=== PATIENT | female | born 1995 | race Caucasian/White ===

== ENCOUNTER → 2016-03-14 | Outpatient (CLI) | payer OTHER ==
--- NOTE | 2016-03-15 04:13 | REP ---
Clinical: Anatomical evaluation. Comparison: none. Findings: Examination demonstrates a single live intrauterine in breech presentation. motion is identified by technologist. Placenta is noted posteriorly and grade zero without evidence for placenta previa or abruption. Amniotic fluid volume is normal. Cervix measures 4.8 cm in length and appears closed. No evidence for nuchal cord. Gestational age by LMP 20 weeks 4 days with RUTH 07/28/2016. Gestational age by current measurements 20 weeks 0 days with RUTH 08/01/2016. FHR equals 150 beats per minute. BPD 4.5 cm 19 weeks 5 days HC 17.7 cm 20 weeks 1 day AC 15.3 cm 20 weeks 4 days FL 3.3 cm 20 weeks 3 days HL 3.2 cm and weeks 6 days HC/AC ratio 1.16 Estimated weight 353 grams ( 40th percentile). Anatomical assessment demonstrates normal structures including cranium, choroid plexus, cavum, cerebellum/posterior fossa, facial features, lungs, four-chamber heart/ventricular outflow tracts, diaphragm, stomach, cord insertion/three-vessel cord, kidneys/bladder, spine, and extremities. Impression: Single live intrauterine demonstrating appropriate interval growth. Breech presentation. Anatomical assessment is complete and normal. Signed by Wilfredo Chatterjee MD 03/15/2016 04:04 A
== END ==
LOC: M SMT 09:46
PROVIDERS: ATTEND Advanced Practice Midwife
DX: Z36 Encounter for antenatal screening of mother (principal); Z3A.20 20 weeks gestation of pregnancy

== ENCOUNTER → 2016-04-25 | Outpatient (CLI) | payer OTHER ==
[2016-04-25 16:40] LABS: MEAN CORPUSCULAR HEMOGLOBIN 29.9 pg (27.0-33.0); MEAN CORPUSCULAR HGB CONC 33.3 g/dl (32.0-36.5); MEAN CORPUSCULAR VOLUME 89.7 fl (80.0-96.0); WHITE BLOOD COUNT 11.2 K/mm3 (4.0-10.0)
== END ==
LOC: M SMT 09:38
PROVIDERS: ATTEND Obstetrics & Gynecology
DX: Z36 Encounter for antenatal screening of mother (principal)

== ENCOUNTER → 2016-04-30 | Outpatient (CLI) | payer OTHER | LOC: M LAB 07:54 | PROVIDERS: ATTEND Obstetrics & Gynecology | DX: Z36 Encounter for antenatal screening of mother (principal) ==

== ENCOUNTER → 2016-07-05 | Outpatient (REF) | payer OTHER | LOC: M LAB REF 12:44 | PROVIDERS: ATTEND Advanced Practice Midwife | DX: Z34.83 Encounter for supervision of other normal pregnancy, third trimester (principal) ==

== ENCOUNTER → 2016-07-19 | Outpatient (CLI) | payer OTHER ==
--- NOTE | 2016-07-19 13:45 | REP ---
Obstetric sonography: History: Gestational diabetes. Findings: Scanning through the gravid uterus demonstrates a viable single intrauterine gestation in a cephalic lie. motion is observed and heart rate is recorded at 147 beats per minute. A posterior fundal grade 0 placenta is seen without evidence of previa or abruption. Amniotic fluid is subjectively normal. Closed cervical length is measured at 4.1 cm transabdominally. No extrauterine abnormality is observed. There has been appropriate interval growth. The following anatomic structures are again identified today and felt to be unremarkable: cranium, choroid plexus, cavum, left ventricular outflow tract view, left-sided stomach, three-vessel cord, kidneys, bladder, spine. Biometry chart: BPD 9.4 cm = 38 weeks 2 days Head circumference 34.4 cm = 39 weeks 5 days Abdominal circumference 36.5 cm = 40 weeks 3 days Femur length 7.5 cm = 38 weeks 4 days Humeral length 6.6 cm = 38 weeks 3 days HC/AC ratio normal 0.94, cephalic index normal 0.76, estimated weight 3849 grams, 8 pounds 7 ounces, 76th percentile for 38 weeks 5 days. heart rate 147 beats per minute. MALINDA normal 12.9 cm. S/D ratio umbilical cord artery by Doppler normal 2.58. Impression: Viable single intrauterine gestation at 39 weeks 0 days by today's composite sonographic criteria. Expected gestational age estimate based on prior sonography is 38 weeks 1 day. RUTH by prior sonography August 01, 2016. Signed by Terry Dotson MD 07/19/2016 04:26 P
== END ==
LOC: M RAD 12:21
PROVIDERS: ATTEND Obstetrics & Gynecology
DX: O24.410 Gestational diabetes mellitus in pregnancy, diet controlled (principal); Z3A.39 39 weeks gestation of pregnancy

== ENCOUNTER 2016-07-28 20:55 | Inpatient (IN) | payer OTHER ==
[~2016-07-28] VITALS: Ht 175.3 cm; Wt 125.0 kg
[2016-07-28 21:12] VITALS: BP 120/79
[2016-07-28 22:34] LABS: MEAN CORPUSCULAR HEMOGLOBIN 30.7 pg (27.0-33.0); MEAN CORPUSCULAR HGB CONC 34.8 g/dl (32.0-36.5); RED CELL DISTRIBUTION WIDTH 13.5 % (11.5-14.5); WHITE BLOOD COUNT 12.1 K/mm3 (4.0-10.0)
[2016-07-28] MEDS: miSOPROStol 50 MCG 1/2 TAB (S0191) PO SCH (22:37)
[2016-07-28 22:38] VITALS: BP 125/61
[2016-07-28 23:11] VITALS: BP 117/71
[2016-07-28 23:41] VITALS: BP 122/60
[2016-07-28] MEDS ORDERED: PRENTAB13 PO (23:46)
[2016-07-29] VITALS (12 sets, daily range): BP systolic 105–129; BP diastolic 54–72
--- NOTE | 2016-07-29 01:00 | HPE ---
DATE OF ADMISSION: 07/28/2016 HISTORY: 20-year-old (G) 2, para (P) 0-0-1-0 female at 40-0/7 weeks gestation by last menstrual period (LMP) consistent with 10-week ultrasound, estimated date of confinement (EDC) of 07/28/2016, presents for labor induction. The patient has a history of diet-controlled gestational diabetes. The patient also had a history at her last office visit of a 9-pound weight gain in 1 week and blood pressure 134/90 and increased lower extremity edema. COURSE: The patient initiated care at 10 weeks gestation on 01/02/2016. Her first trimester blood pressure was 114/64, weight 243 pounds. course was significant for an abnormal glucose tolerance test. She had excellent glucose control as documented by glucose testing. She did not require medications for gestational diabetes. Growth ultrasound at 38 weeks gestation revealed a weight in the 76th percentile, 3849 grams. MEDICAL HISTORY: Noncontributory. SURGICAL HISTORY: Noncontributory. ALLERGIES: None. SOCIAL HISTORY: The father of the baby is involved. The patient denies cigarettes, alcohol or drug use. FAMILY HISTORY: Noncontributory. PHYSICAL EXAMINATION: VITAL SIGNS: Blood pressure 134/70. She is in no apparent distress. HEAD/NECK: Examination normal. LUNGS: Clear. HEART: Regular rate and rhythm. ABDOMEN: Nontender. Gravid. heart tones category 1. STERILE VAGINAL EXAMINATION: Cervix is closed, 50%, -3 station, vertex. EXTREMITIES: Nontender. LABORATORIES: Blood type A positive. Rubella immune. RPR nonreactive. Hepatitis B and C negative. Diabetes screen 139. Group B Streptococcus (GBS) negative 07/05/2016. ASSESSMENT: 20-year-old (G) 2, para (P) 0-0-1-0 female at 40-0/7 weeks gestation with diet-controlled gestational diabetes presents for labor induction. The patient is admitted on 07/28/2016. Risks of induction were discussed.
[2016-07-29] MEDS: miSOPROStol 50 MCG 1/2 TAB (S0191) PO SCH ×4 (02:37→15:33)
[2016-07-29] MEDS ORDERED: BUTORPHANOL 2 MG/ML INJ (J0595) IV ONE (11:30)
[2016-07-29] MEDS ORDERED: PROMETHAZINE INJ 25 MG/ML VIAL (J2550) IV ONE (11:30)
[2016-07-29] MEDS ORDERED: OXYTOCIN DRIP 30 UNITS in APPROPRIATE DILUENT 1 EA IV SCH (17:00)
[2016-07-29 17:26] LABS: MEAN CORPUSCULAR HEMOGLOBIN 31.1 pg (27.0-33.0); MEAN CORPUSCULAR HGB CONC 35.5 g/dl (32.0-36.5); MEAN CORPUSCULAR VOLUME 87.6 fl (80.0-96.0); RED CELL DISTRIBUTION WIDTH 13.1 % (11.5-14.5); WHITE BLOOD COUNT 15.6 K/mm3 (4.0-10.0)
[2016-07-29] MEDS ORDERED: FENTANYL 2MCG/ML ROPIVACAINE 0.2% IN 0.9% NACL 200ML IVBAG As Ordered ONE (23:58)
[2016-07-30] VITALS (92 sets, daily range): BP systolic 87–177; BP diastolic 50–104
[2016-07-30] MEDS ORDERED: ONDANSETRON 4MG/2ML VIAL (J2405) IV PRN ×2 (01:30→19:45)
[2016-07-30] MEDS ORDERED: diphenhydrAMINE INJ 50MG/ML VIAL (J1200) IV PRN (01:30)
[2016-07-30] MEDS ORDERED: EPIDURAL/PCA KEYS XX PRN (01:30)
[2016-07-30] MEDS ORDERED: NALOXONE INJ 0.4 MG/1 ML VIAL (J2310) IV PRN (01:30)
[2016-07-30] MEDS ORDERED: REFRIGERATOR IV KEYS XX PRN (01:30)
[2016-07-30] MEDS ORDERED: LACTATED RINGER'S 1000 ML IV PRN (01:30)
[2016-07-30] MEDS ORDERED: EPIDURAL COMMENT XX SCH (01:30)
[2016-07-30] MEDS ORDERED: FENTANYL/ROPIVACAINE/NACL BAG 200 ML EPIDURAL SCH (01:30)
[2016-07-30] MEDS ORDERED: ePHEDrine SULFATE 25 MG/5 ML(5MG/ML) SYRINGE IV PRN (01:30)
[2016-07-30] MEDS: LR 1,000 ML IV SCH ×2 (10:30→15:03)
[2016-07-30 19:28] LABS: CORD GAS ABE V -4.1; CORD GAS HCO3 V 21.9 MEQ/L; CORD GAS O2 SAT V 38.3 %; CORD GAS PCO2 V 43.4 mmHg; CORD GAS PH V 7.321 UNITS; CORD GAS PO2 V 18.6 mmHg; CORD GAS SBC V 19.7 MEQ/L; CORD GAS TCO2 V 23.2 MEQ/L
[2016-07-30 19:29] LABS: CORD GAS ABE A -5.2; CORD GAS HCO3 A 21.4 MEQ/L; CORD GAS O2 SAT A 29.1 %; CORD GAS PCO2 A 45.6 mmHg; CORD GAS PH A 7.29 UNITS; CORD GAS PO2 A 15.2 mmHg; CORD GAS SBC A 18.6 MEQ/L; CORD GAS TCO2 A 22.8 MEQ/L
[2016-07-30] MEDS: OXYTOCIN DRIP 30 UNITS in APPROPRIATE DILUENT 1 EA IV SCH ×3 (19:38→22:15)
[2016-07-30] MEDS ORDERED: DIBUCAINE 1% OINTMENT 30GM TOP PRN (19:45)
[2016-07-30] MEDS ORDERED: MEASLES,MUMPS,RUBELLA VACCINE INJ (MMR-II) (90707) SC SCH (19:45)
[2016-07-30] MEDS ORDERED: DOCUSATE SODIUM 100 MG CAP PO PRN (19:45)
[2016-07-30] MEDS ORDERED: ANUSOL HC CREAM 30GM TOP PRN (19:45)
[2016-07-30] MEDS ORDERED: RHOGAM 300 MCG (1500 IU) INJ (J2790) IM SCH (19:45)
[2016-07-30] MEDS ORDERED: MOM 30ML SUSPENSION UDC PO PRN (19:45)
[2016-07-30] MEDS ORDERED: METHYLERGONOVINE MALEATE 0.2 MG TAB PO PRN (19:45)
[2016-07-30] MEDS ORDERED: IBUPROFEN 800 MG TAB PO PRN (19:45)
[2016-07-30] MEDS ORDERED: ACETAMINOPHEN 500 MG TAB PO PRN (19:45)
--- NOTE | 2016-07-30 20:13 | DN ---
DATE OF DELIVERY: 07/30/2016 TIME OF : 1908 GENDER: Male. SCORES: 8 and 9. WEIGHT: 3894 grams, or 8 pound s 9 ounces. ANESTHESIA: Epidural. LACERATIONS: A second-degree midline laceration and a periurethral laceration. COUNTS: Five laparotomy sponges accounted for prior to and after delivery. Three sharps removed from the delivery field. CORD GASES: 7.29, 7.32 with base excesses of -5.2 and -4.1, respectively. MODE OF DELIVERY: Low vacuum-assisted vaginal delivery. INDICATION FOR DELIVERY: Maternal exhaustion. DELIVERY NOTE: On 07/30/2016 at 1909, Mrs. Rey, a 20-year-old 2, now para 1, had a low vacuum-assisted vaginal delivery of a live-born male infant, scores 8 and 9. Weight was 8 pounds 9 ounces, or 3898 grams. Indication for operative delivery was maternal exhaustion. The patient had been pushing for approximately 3-1/2 hours and had made no further descent after approximately an hour and a half. She was examined. She was found to be in +2 station. Position was occiput posterior (OP). She was verbally consented for an operative delivery. The vacuum was placed, and with three sets of maternal pushing effort with three popoffs, two secondary to poor suction, had was delivered OP. Suction was then released. The left anterior shoulder was then delivered followed by right posterior shoulder and corpus. Infant was handed to mother with good cry. Cord was clamped times two and was cut by the father of the baby under my direction. Cord blood as well as cord gases was obtained. Placenta was drained and delivered grossly intact. A premix bag of 500 mL of normal saline with 30 units of Pitocin was then bolused along with uterine massage until the uterus was firm. On inspection, there was a periurethral laceration as well as a secondary midline laceration, which were both repaired with #3-0 Vicryl. On reinspection, cervix, vagina, and peritoneum were grossly intact and hemostatic. A Musa catheter was then placed and set to gravity secondary to periurethral laceration and concerns for edema. Edited: marlen 08/03/2016 1369 MTDD
[2016-07-30] MEDS: KETOROLAC 30 MG/ML VIAL (J1885) IV SCH (21:29)
[2016-07-30] MEDS ORDERED: OXYTOCIN INJ 10 UNITS/ML VIAL (J2590) IV ONE (22:00)
[2016-07-30] MEDS ORDERED: miSOPROStol 200 MCG TAB (S0191) PR ONE (22:00)
[2016-07-30] MEDS ORDERED: MORPHINE 10 MG/ML 1ML VIAL As Ordered ONE (22:06)
[2016-07-30] MEDS ORDERED: METHYLERGONOVINE MALEATE 0.2 MG/ML VIAL (J2210) As Ordered ONE (22:15)
[2016-07-30] MEDS ORDERED: OXYTOCIN DRIP 30 UNITS in APPROPRIATE DILUENT 1 EA IV SCH (22:28)
[2016-07-30] MEDS ORDERED: METHYLERGONOVINE MALEATE 0.2 MG/ML VIAL (J2210) IM ONE (22:30)
[2016-07-30] MEDS ORDERED: MORPHINE 10 MG/ML 1ML VIAL IV ONE (22:30)
[2016-07-30 22:53] LABS: MEAN CORPUSCULAR HGB CONC 34.9 g/dl (32.0-36.5); MEAN CORPUSCULAR VOLUME 88.7 fl (80.0-96.0); RED CELL DISTRIBUTION WIDTH 13.6 % (11.5-14.5)
[2016-07-30] MEDS: AMPICILLIN SOD/SULBACTAM SOD 3 GM in D5W MINI-BAG PLUS 100 ML IV SCH (23:16)
[2016-07-31] VITALS (7 sets, daily range): BP systolic 101–132; BP diastolic 55–86
[2016-07-31] MEDS: KETOROLAC 30 MG/ML VIAL (J1885) IV SCH (02:31)
[2016-07-31] MEDS: METHYLERGONOVINE MALEATE 0.2 MG TAB PO SCH ×6 (02:31→21:43)
[2016-07-31] MEDS ORDERED: OXYTOCIN 30 UNITS IN 0.9% NaCl 500ML IV BAG (J2590) As Ordered ONE (03:03)
[2016-07-31] MEDS: OXYTOCIN DRIP 30 UNITS in APPROPRIATE DILUENT 1 EA IV SCH (03:36)
[2016-07-31] MEDS: AMPICILLIN SOD/SULBACTAM SOD 3 GM in D5W MINI-BAG PLUS 100 ML IV SCH ×2 (04:50→10:06)
[2016-07-31] MEDS ORDERED: IBUPROFEN 800 MG TAB PO SCH (06:00)
[2016-07-31 07:09] LABS: MEAN CORPUSCULAR HEMOGLOBIN 31.5 pg (27.0-33.0); MEAN CORPUSCULAR HGB CONC 35.3 g/dl (32.0-36.5); MEAN CORPUSCULAR VOLUME 89.2 fl (80.0-96.0); RED CELL DISTRIBUTION WIDTH 13.3 % (11.5-14.5); WHITE BLOOD COUNT 17.6 K/mm3 (4.0-10.0)
[2016-07-31] MEDS: PRENATAL VITAMIN TAB PO SCH (10:05)
[2016-07-31] MEDS: IBUPROFEN 800 MG TAB PO SCH (21:43)
[2016-08-01 02:00] VITALS: BP 120/71
[2016-08-01] MEDS: IBUPROFEN 800 MG TAB PO SCH (05:38)
[2016-08-01 06:00] VITALS: BP 132/67
[2016-08-01] MEDS ORDERED: IBUP-1114 PO (08:28)
[2016-08-01] MEDS ORDERED: ACET50TA PO (08:31)
[2016-08-01] MEDS: PRENATAL VITAMIN TAB PO SCH (09:55)
[2016-08-01 10:38] VITALS: BP 110/62
[2016-08-01 14:10] VITALS: BP 135/60
== END 2016-08-01 15:37 | disposition home or self-care (01) | DRG 560 ==
LOC: M LDI 20:55 → M OBS 07-30 20:45
PROVIDERS: ADMIT Specialist; ATTEND Specialist
PROC: 3E0DXGC Introduction of Other Therapeutic Substance into Mouth and Pharynx, External Approach (ICD-10-PCS; 2016-07-28)
PROC: 10D07Z6 Extraction of Products of Conception, Vacuum, Via Natural or Artificial Opening (ICD-10-PCS; principal; 2016-07-30)
PROC: 0KQM0ZZ Repair Perineum Muscle, Open Approach (ICD-10-PCS; 2016-07-30)
PROC: 0UQMXZZ Repair Vulva, External Approach (ICD-10-PCS; 2016-07-30)
DX: O24.420 Gestational diabetes mellitus in childbirth, diet controlled (principal); O72.1 Other immediate postpartum hemorrhage; O48.0 Post-term pregnancy; Z37.0 Single live birth; Z3A.40 40 weeks gestation of pregnancy; O71.82 Other specified trauma to perineum and vulva; O70.1 Second degree perineal laceration during delivery; O75.81 Maternal exhaustion complicating labor and delivery

== ENCOUNTER → 2016-08-16 | Outpatient (CLI) | payer OTHER ==
[~2016-08-16] MED LIST: ACET50TA PO; IBUP-1114 PO; PRENTAB20 PO
[2016-08-16 13:48] LABS: BASO % 0.4 % (0.0-1.0); EOS % 0.7 % (0.0-3.0); LARGE UNSTAINED CELL # 0.1 K/mm3 (0.0-0.4); LARGE UNSTAINED CELL % 1.4 % (0.0-4.0); LYMPH # 1.8 K/mm3 (1.5-6.5); LYMPH % 21.6 % (24.0-44.0); MEAN CORPUSCULAR HEMOGLOBIN 29.6 pg (27.0-33.0); MEAN CORPUSCULAR HGB CONC 32.7 g/dl (32.0-36.5); MEAN CORPUSCULAR VOLUME 90.4 fl (80.0-96.0); MONO # 0.4 K/mm3 (0.0-0.8); MONO % 4.5 % (0.0-5.0); NEUTROPHILS # 5.9 K/mm3 (1.8-7.7); NEUTROPHILS % 71.4 % (36.0-66.0); PLATELET COUNT, AUTOMATED 300 k/mm3 (150-450); RED CELL DISTRIBUTION WIDTH 13.2 % (11.5-14.5); WHITE BLOOD COUNT 8.2 K/mm3 (4.0-10.0)
== END ==
LOC: M SMT 10:24
PROVIDERS: ATTEND Advanced Practice Midwife
DX: Z13.89 Encounter for screening for other disorder (principal)

== ENCOUNTER → 2016-09-11 | Outpatient (REF) | payer OTHER | LOC: M LAB REF 09:11 | PROVIDERS: ATTEND Physician Assistant Medical | DX: J02.9 Acute pharyngitis, unspecified (principal) ==

== ENCOUNTER → 2016-10-13 | Outpatient (REF) | payer OTHER | LOC: M LAB REF 10:00 | PROVIDERS: ATTEND Physician Assistant | DX: J02.9 Acute pharyngitis, unspecified (principal) ==

== ENCOUNTER → 2017-09-19 | Outpatient (REF) | payer OTHER ==
[2017-09-19 11:32] LABS: BASO % 0.5 % (0.0-1.0); EOS # 0.1 10^3/uL (0.0-0.50); EOS % 1.8 % (0.0-3.0); HEMATOCRIT 42.3 % (36.0-47.0); IMMATURE GRANULOCYTE % 0.2 % (0-3.0); LYMPH # 2.6 10^3/uL (1.5-6.5); LYMPH % 40.2 % (24.0-44.0); MEAN CORPUSCULAR HEMOGLOBIN 28.8 pg (27.0-33.0); MEAN CORPUSCULAR HGB CONC 33.1 g/dl (32.0-36.5); MONO # 0.5 10^3/uL (0.0-0.8); MONO % 7.6 % (0.0-5.0); NEUTROPHILS # 3.3 10^3/uL (1.8-7.7); NEUTROPHILS % 49.7 % (36.0-66.0); PLATELET COUNT, AUTOMATED 201 10^3/uL (150-450); RED BLOOD COUNT 4.86 10^6/uL (4.00-5.40); RED CELL DISTRIBUTION WIDTH 12.6 % (11.5-14.5); WHITE BLOOD COUNT 6.6 10^3/uL (4.0-10.0)
[2017-09-19 12:12] LABS: TOTAL 25(OH) VITAMIN D 26.4 NG/ML (30.0-100.0)
[2017-09-19 12:27] LABS: ALBUMIN 3.6 GM/DL (3.2-5.2); ALBUMIN/GLOBULIN RATIO 1.03 (1.00-1.93); ALKALINE PHOSPHATASE 78 U/L (45-117); ALT/SGPT 31 U/L (12-78); ANION GAP 10 MEQ/L (8-16); AST/SGOT 14 U/L (7-37); BILIRUBIN,TOTAL 0.2 MG/DL (0.2-1.0); BLOOD UREA NITROGEN 13 MG/DL (7-18); CALCIUM LEVEL 9.3 MG/DL (8.5-10.1); CARBON DIOXIDE LEVEL 27 MEQ/L (21-32); CHLORIDE LEVEL 105 MEQ/L (98-107); CHOLESTEROL LEVEL 196 MG/DL (<200); CHOLESTEROL RISK RATIO 4.454 (<5); CREATININE FOR GFR 0.76 MG/DL (0.55-1.30); FREE T4 0.98 NG/DL (0.76-1.46); GLOMERULAR FILTRATION RATE > 60.0 (>60); GLUCOSE, FASTING 104 MG/DL (70-100); HDL CHOLESTEROL 44 MG/DL (>40); LDL CHOLESTEROL 128.4 MG/DL (<100); NON-HDL-C 152 MG/DL; POTASSIUM SERUM 4.5 MEQ/L (3.5-5.1); SODIUM LEVEL 142 MEQ/L (136-145); TOTAL PROTEIN 7.1 GM/DL (6.4-8.2); TRIGLYCERIDES LEVEL 118 MG/DL (<150)
== END ==
LOC: M SFHCSACK 08:10
DX: Z00.00 Encounter for general adult medical examination without abnormal findings (principal); Z83.49 Family history of other endocrine, nutritional and metabolic diseases; Z13.29 Encounter for screening for other suspected endocrine disorder; Z13.21 Encounter for screening for nutritional disorder

== ENCOUNTER → 2017-12-01 | Outpatient (REF) | payer OTHER | LOC: M LAB REF 13:56 | DX: Z01.411 Encounter for gynecological examination (general) (routine) with abnormal findings (principal) | CPT/HCPCS: 88142 ==

== ENCOUNTER → 2017-12-17 | Outpatient (REF) | payer OTHER | LOC: M LAB REF 16:45 | DX: J02.9 Acute pharyngitis, unspecified (principal) ==

== ENCOUNTER 2018-02-16 15:57 | Emergency (ER) | payer OTHER ==
[~2018-02-16] VITALS: Ht 175.3 cm; Wt 122.7 kg
[~2018-02-16 15:57] MED LIST changes: -ACET50TA PO; +MAPA500T2 PO
[2018-02-16 15:58] VITALS: BP 139/91
[2018-02-16] MEDS ORDERED: LO LTAB (16:03)
[2018-02-16] MEDS ORDERED: DICL75TA PO (16:43)
[2018-02-16] MEDS ORDERED: KETOROLAC TROMETHAMINE 10 MG TAB PO ONE (16:45)
--- NOTE | 2018-02-16 17:02 | REP ---
LEFT ELBOW, FOUR VIEWS: HISTORY: Pain. There is no acute fracture or dislocation. The joint space is normal in appearance. IMPRESSION:There is no acute fracture or dislocation. Electronically Signed by Andrés Bethea MD 02/17/2018 08:14 A
== END 2018-02-16 16:54 | disposition home or self-care (01) ==
LOC: M ED 15:57
DX: M70.32 Other bursitis of elbow, left elbow (principal); W19.XXXA Unspecified fall, initial encounter; Y92.009 Unspecified place in unspecified non-institutional (private) residence as the place of occurrence of the external cause

== ENCOUNTER 2019-01-28 09:16 | Emergency (ER) | payer OTHER ==
[~2019-01-28] VITALS: Ht 175.3 cm; Wt 116.0 kg
[~2019-01-28 09:16] MED LIST changes: +DICL75TA PO; +LO LTAB
[2019-01-28] MEDS ORDERED: ZOLO25TA PO (09:22)
[2019-01-28] MEDS ORDERED: UNIS25TA3 PO (09:22)
[2019-01-28 10:04] LABS: BASO % 0.2 % (0.0-1.0); EOS % 0.2 % (0.0-3.0); HEMATOCRIT 39.7 % (36.0-47.0); HEMOGLOBIN 13.6 g/dl (12.0-15.5); MEAN CORPUSCULAR HEMOGLOBIN 29.8 pg (27.0-33.0); MEAN CORPUSCULAR HGB CONC 34.3 g/dl (32.0-36.5); MEAN CORPUSCULAR VOLUME 87.1 fl (80.0-96.0); MONO # 0.5 10^3/uL (0.0-0.8); MONO % 10.5 % (0.0-5.0); NEUTROPHILS # 3.4 10^3/uL (1.5-8.5); NEUTROPHILS % 68.7 % (36.0-66.0); PLATELET COUNT, AUTOMATED 140 10^3/uL (150-450); RED BLOOD COUNT 4.56 10^6/uL (4.00-5.40)
[2019-01-28] MEDS ORDERED: NS 1,000 ML IV ONE (10:15)
[2019-01-28] MEDS ORDERED: ONDANSETRON 4MG/2ML VIAL (J2405) IV ONE (10:15)
[2019-01-28 10:29] LABS: HCG, SERUM QUALITATIVE POSITIVE (NEGATIVE)
[2019-01-28 10:31] LABS: ALBUMIN 3.4 GM/DL (3.2-5.2); ALT/SGPT 114 U/L (12-78); BILIRUBIN,DIRECT 0.1 MG/DL (0.0-0.2); BILIRUBIN,TOTAL 0.3 MG/DL (0.2-1.0); BLOOD UREA NITROGEN 5 MG/DL (7-18); CALCIUM LEVEL 8.8 MG/DL (8.5-10.1); CARBON DIOXIDE LEVEL 25 MEQ/L (21-32); CHLORIDE LEVEL 103 MEQ/L (98-107); CREATININE FOR GFR 0.59 MG/DL (0.55-1.30); GLOMERULAR FILTRATION RATE > 60.0 (>60); GLUCOSE, FASTING 99 MG/DL (70-100); LIPASE 112 U/L (73-393); POTASSIUM SERUM 3.4 MEQ/L (3.5-5.1); SODIUM LEVEL 139 MEQ/L (136-145); TOTAL PROTEIN 6.9 GM/DL (6.4-8.2)
[2019-01-28 10:54] LABS: INFLUENZA A AMPLIFICATION NEGATIVE (NEGATIVE); INFLUENZA B AMPLIFICATION POSITIVE (NEGATIVE)
[2019-01-28] MEDS ORDERED: ONDA4TAB6 PO (12:58)
[2019-01-28] MEDS ORDERED: OSEL75CA PO (12:58)
[2019-01-28] MEDS ORDERED: POTASSIUM CHLORIDE 10 MEQ SR TABLET PO ONE (13:00)
[2019-01-28 13:20] VITALS: BP 116/62
[2019-01-29 11:36] LABS: HEPATITIS B SURFACE ANTIGEN NEGATIVE (NEGATIVE)
[2019-01-29 12:03] LABS: HEPATITIS B CORE ANTIBODY IGM NEGATIVE (NEGATIVE); HEPATITIS C VIRUS ABY INDEX 0.2 INDEX (<0.8)
[2019-01-29 12:06] LABS: HEPATITIS A ANTIBODY IGM NEGATIVE (NEGATIVE)
== END 2019-01-28 13:24 | disposition home or self-care (01) ==
LOC: M ED 09:16
DX: O21.9 Vomiting of pregnancy, unspecified (principal); O99.322 Drug use complicating pregnancy, second trimester; F12.90 Cannabis use, unspecified, uncomplicated; O99.280 Endocrine, nutritional and metabolic diseases complicating pregnancy, unspecified trimester; E87.6 Hypokalemia; R74.0 Nonspecific elevation of levels of transaminase and lactic acid dehydrogenase [LDH]; Z3A.17 17 weeks gestation of pregnancy; Z79.899 Other long term (current) drug therapy
CPT/HCPCS: 36415; 80048; 80076; 81001; 83690; 84703; 85025; 86705; 86709; 86803; 87086; 87340; 87502; 96361; 96374; 99284; J2405

== ENCOUNTER → 2019-02-17 | Outpatient (CLI) | payer OTHER ==
[~2019-02-17] MED LIST changes: +ONDA4TAB6 PO; +OSEL75CA PO; +UNIS25TA3 PO; +ZOLO25TA PO
--- NOTE | 2019-02-18 11:24 | REP ---
Clinical: Anatomical evaluation. Comparison: None . Findings: Examination demonstrates a single live intrauterine in breech presentation. motion is identified by technologist. Placenta is noted anterior and grade I without evidence for placenta previa or abruption. Amniotic fluid volume is normal. Cervix measures 5.5 cm in length and appears closed. No evidence for nuchal cord. Gestational age by LMP 21 weeks 5 day with RUTH 06/25/2019 . Gestational age by current measurements 19 weeks 4 days with RUTH 07/10/2019 . FHR equals 147 beats per minute. BPD 4.2 cm 18 weeks 5 days HC 17.5 cm 20 weeks 0 days AC 14.6 cm 19 weeks 6 days FL 3.0 cm 19 weeks 2 days HL 3.0 cm 19 weeks 5 days HC/AC ratio 1.20 Estimated weight 302 grams (15th percentile based on age by current measurements; less than 3rd percentile based on LMP). Anatomical assessment demonstrates normal structures including cranium, choroid plexus, cavum, cerebellum/posterior fossa, lungs, diaphragm, stomach, cord insertion/three-vessel cord, kidneys/bladder, spine, and extremities. Limited evaluation of the facial features and heart/ventricular outflow tracts. Impression: 1. Single live intrauterine in breech presentation. Estimated weight as described above. 2. Limited evaluation of the facial features and heart/ventricular outflow tracts may warrant reevaluation and follow-up. Electronically Signed by Wilfredo Chatterjee MD 02/18/2019 06:02 A
== END ==
LOC: M RAD 11:33
PROVIDERS: ATTEND Advanced Practice Midwife
DX: Z36.89 Encounter for other specified antenatal screening (principal); Z3A.19 19 weeks gestation of pregnancy

== ENCOUNTER → 2019-03-05 | Outpatient (CLI) | payer OTHER ==
[2019-03-05 14:15] LABS: BASO % 0.3 % (0.0-1.0); EOS # 0.1 10^3/uL (0.0-0.5); EOS % 0.9 % (0.0-3.0); HEMATOCRIT 37.2 % (36.0-47.0); HEMOGLOBIN 12.4 g/dl (12.0-15.5); LYMPH # 2.1 10^3/uL (1.5-5.0); LYMPH % 19.8 % (24.0-44.0); MEAN CORPUSCULAR HEMOGLOBIN 29.2 pg (27.0-33.0); MEAN CORPUSCULAR HGB CONC 33.3 g/dl (32.0-36.5); MEAN CORPUSCULAR VOLUME 87.7 fl (80.0-96.0); MONO # 0.8 10^3/uL (0.0-0.8); NEUTROPHILS # 7.6 10^3/uL (1.5-8.5); NEUTROPHILS % 71.3 % (36.0-66.0); PLATELET COUNT, AUTOMATED 168 10^3/uL (150-450); RED BLOOD COUNT 4.24 10^6/uL (4.00-5.40); WHITE BLOOD COUNT 10.7 10^3/uL (4.0-10.0)
[2019-03-05 14:32] LABS: HEMOGLOBIN A1c 5.6 %
[2019-03-05 15:04] LABS: CHLAMYDIA DNA AMPLIFICATION NEGATIVE (NEGATIVE); GC DNA AMPLIFICATION NEGATIVE (NEGATIVE)
[2019-03-05 15:06] LABS: HEPATITIS C VIRUS ABY INDEX < 0.0 INDEX (<0.8); HIV 1&2 SCREEN CENTAUR NEGATIVE (NEGATIVE); RUBELLA IgG QUALITATIVE IMMUNE (IMMUNE)
== END ==
LOC: M PLALAB 09:33
PROVIDERS: ATTEND Advanced Practice Midwife
DX: Z36.89 Encounter for other specified antenatal screening (principal); Z86.32 Personal history of gestational diabetes

== ENCOUNTER → 2019-03-09 | Outpatient (CLI) | payer OTHER | LOC: M PLALAB 09:53 | PROVIDERS: ATTEND Advanced Practice Midwife | DX: Z36.89 Encounter for other specified antenatal screening (principal); O99.210 Obesity complicating pregnancy, unspecified trimester; Z86.32 Personal history of gestational diabetes ==

== ENCOUNTER → 2019-03-12 | Outpatient (CLI) | payer OTHER ==
--- NOTE | 2019-03-12 17:40 | REP ---
Fifth ultrasound for follow-up of anatomy: The prior study dated February 17, 2019 was unable to satisfactorily visualize the facial features, four-chamber view of the heart and the cardiac right and left ventricular outflow tracts because of position. On the study today the upper lip, facial profile and face are satisfactorily demonstrated and unremarkable. The four-chamber view of the heart and the cardiac right and left ventricular outflow tracts are satisfactorily demonstrated and are unremarkable. On the study today the spine and kidneys are not optimally demonstrated because of position, however, these were adequately visualized previously and are unremarkable. The remainder of the anatomy today is unremarkable as previously. There are no anomalies. There is a single intrauterine gestation in a breech presentation. There is movement and cardiac activity. The heart rate is 120 beats per minute. The placenta is anterior. There is no previa or abruptio. The placenta is grade 1. The amniotic fluid volume subjectively is normal. The fluid index is 10.30 (9.8 - 22.0). Gestational age by today's ultrasound is 22 weeks 5 days/RUTH 07/11/2019. Gestational age by the first ultrasound is 22 weeks 6 days/RUTH 07/10/2019. Gestational age by LMP is 24 weeks 2 days is/RUTH 06/30/2019. weight is for a 56 grams/1 pound, 3 ounces. This is the 8th percentile for 24 weeks 2 days. Impression: All of the anatomy has been satisfactorily demonstrated and is unremarkable. The weight is at the 8th percentile for 24 weeks 2 days. Electronically Signed by Brendon Herbert MD 03/12/2019 05:32 P
== END ==
LOC: M RAD 15:48
PROVIDERS: ATTEND Advanced Practice Midwife
DX: O24.419 Gestational diabetes mellitus in pregnancy, unspecified control (principal); Z3A.24 24 weeks gestation of pregnancy

== ENCOUNTER → 2019-04-06 | Outpatient (CLI) | payer OTHER ==
--- NOTE | 2019-04-06 18:59 | REP ---
OB ULTRASOUND AND BIOPHYSICAL PROFILE: Real-time sonographic evaluation of the gravid uterus performed. There is a single living intrauterine gestation. Estimated gestational age reportedly is 27 weeks 6 days, EDC 06/30/2019. Cervix is closed and measures 3.3 cm in length. heart rate 153 beats per minute. Amniotic fluid within normal limits, MALINDA 10.2, within normal range of 9.4 to 22.8. Biophysical profile score 8/8. S/D ratio umbilical artery 3.03, within normal range of 2.6 x 4.0. RI 0.67, within normal range of 0.59 to 0.75. position is breech. Amniotic fluid appears within normal limits for gestational age subjectively. Placenta anterior and grade 2 with no previa or abruption.
== END ==
LOC: M WHC 13:58
PROVIDERS: ATTEND Advanced Practice Midwife
DX: Z36.2 Encounter for other antenatal screening follow-up (principal); O36.5930 Maternal care for other known or suspected poor fetal growth, third trimester, not applicable or unspecified; Z3A.27 27 weeks gestation of pregnancy

== ENCOUNTER → 2019-04-16 | Outpatient (CLI) | payer OTHER ==
--- NOTE | 2019-04-16 15:14 | REP ---
Obstetric sonography: History: Intrauterine growth restriction. Third trimester growth study. Findings: Scanning through the gravid uterus demonstrates a viable single intrauterine gestation in a cephalic lie. motion is observed and heart rate is recorded at 142 beats per minute. The placenta is anterior grade 2 without evidence of previa. Amniotic fluid is subjectively normal. There has been appropriate interval growth. Biometry chart: BPD 7.0 cm = 28 weeks 1 day Head circumference 26.3 cm = 28 weeks 4 days Abdominal circumference 24.3 cm = 28 weeks 4 days Femur length 5.1 cm = 27 weeks 3 days Humeral length 4.7 cm = 27 weeks 4 days HC/AC ratio normal 1.08. Cephalic index normal 0.73. Estimated weight 1181 grams, 2 pounds 9 ounces, 17th percentile for 29 weeks 2 days. MALINDA normal 10.8 cm. Biophysical profile score 8 out of a possible 8. S/D ratio in the umbilical cord artery normal 2.4. Impression: Viable single intrauterine gestation at 27 weeks 5 days by today's composite sonographic criteria. Expected gestational age estimate based on prior sonography is 29 weeks 2 days. RUTH by prior sonography June 30, 2019.
== END ==
LOC: M WHC 11:52
PROVIDERS: ATTEND Advanced Practice Midwife
DX: Z36.2 Encounter for other antenatal screening follow-up (principal); Z3A.27 27 weeks gestation of pregnancy

== ENCOUNTER → 2019-04-26 | Outpatient (CLI) | payer OTHER ==
--- NOTE | 2019-04-26 22:35 | REP ---
Clinical: well-being Comparison: 04/16/2019 . Findings: Examination demonstrates a single live intrauterine in cephalic presentation. motion is identified by technologist. Placenta is noted anterior and grade I I without evidence for placenta previa or abruption. Amniotic fluid volume is normal. Cervix measures 3.3 cm in length and appears closed. No evidence for nuchal cord. Gestational age by LMP 30 weeks 5 days with RUTH 06/30/2019 . FHR equals 160 beats per minute. Biophysical profile score: 8/8 Amniotic fluid index: 12.9 cm. Umbilical cord SD ratio ( insertion): 3.05 (3.30 - 4.70) Umbilical cord SD ratio (placenta insertion): 3.58 (2.50 - 3.50). Umbilical cord SD ratio (mid cord): 3.0 (2.50 - 3.50). Impression: Single live intrauterine in cephalic presentation. Biophysical profile score and amniotic fluid volume are normal. Umbilical cord SD ratio at the placental insertion is mildly elevated. Electronically Signed by Wilfredo Chatterjee MD 04/26/2019 10:27 P
== END ==
LOC: M WHC 10:55
PROVIDERS: ATTEND Advanced Practice Midwife
DX: O36.5930 Maternal care for other known or suspected poor fetal growth, third trimester, not applicable or unspecified (principal); Z3A.30 30 weeks gestation of pregnancy

== ENCOUNTER → 2019-04-30 | Outpatient (CLI) | payer OTHER ==
--- NOTE | 2019-04-30 13:45 | REP ---
OB ULTRASOUND: Real-time sonographic evaluation of the gravid uterus performed. There is a single living intrauterine gestation. Estimated gestational age 31 weeks 2 days, EDC 06/30/2019. Today's measurements indicate appropriate growth. Biometry and Growth: BPD 76 mm = 30 weeks 4 days, 40th percentile HC 287 mm = 31 weeks 4 days, 54th percentile AC 278 mm = 31 weeks 5 days, 58th percentile FL 55 mm = 29 weeks 1 day, less than 5th percentile HC/AC ratio 1.104 within normal range of 0.96 to 1.15. Estimated weight 1656 grams, 34th percentile. SEEN/GROSSLY UNREMARKABLE Lateral ventricles Yes Posterior fossa Yes Upper lip Yes Four-chamber heart Yes LVOT Yes RVOT Yes Stomach Yes Cord insertion Yes Three vessel cord Yes Kidneys Yes Bladder Yes Spine Yes Cervical length: Closed and measures 3.5 cm in length. heart rate: 132 beats per minute. position: Vertex. Placenta: Anterior and grade 2 with no previa or abruption. Amniotic fluid: Within normal limits, MALINDA 13.6 within normal range of 8.7 to 23.9. Biophysical score: 8/8. In the mid umbilical artery S/D ratio ration is 2.46, normal range 2.5 to 3.5. RI: 0.59, normal range 0.59 to 0.75.
== END ==
LOC: M WHC 11:34
PROVIDERS: ATTEND Advanced Practice Midwife
DX: O36.5930 Maternal care for other known or suspected poor fetal growth, third trimester, not applicable or unspecified (principal); Z3A.31 31 weeks gestation of pregnancy

== ENCOUNTER → 2019-05-07 | Outpatient (CLI) | payer OTHER ==
--- NOTE | 2019-05-07 13:56 | REP ---
OBSTETRIC SONOGRAPHY: LIMITED STUDY. HISTORY: Intrauterine growth restriction. Third trimester. FINDINGS: Scanning through the gravid uterus demonstrates a single living intrauterine gestation in a cephalic lie. motion is observed. heart rate is recorded at 146 beats per minute. Closed cervical length is 3.3 cm measured transabdominally. Amniotic fluid is subjectively normal. A grade 2 anterior placenta is seen without evidence of placenta previa or abruption. Biophysical profile score is 8 out of a possible 8. MALINDA is normal 15.2 cm. S/D ratio in the umbilical cord artery by Doppler is normal at 2.91.
== END ==
LOC: M WHC 10:30
PROVIDERS: ATTEND Advanced Practice Midwife
DX: Z36.4 Encounter for antenatal screening for fetal growth retardation (principal); O36.5930 Maternal care for other known or suspected poor fetal growth, third trimester, not applicable or unspecified

== ENCOUNTER → 2019-05-13 | Outpatient (CLI) | payer OTHER ==
--- NOTE | 2019-05-13 14:16 | REP ---
OBSTETRIC SONOGRAPHY: HISTORY: growth biophysical profile. Intrauterine growth restriction. FINDINGS: Scanning through the gravid uterus demonstrates a living single intrauterine gestation in a cephalic lie. motion is observed and heart rate is recorded at 136 beats per minute. An anterior grade 2 placenta is seen without evidence of previa or abruption. Amniotic fluid is subjectively normal. Closed cervical length is 3.2 cm measured transabdominally. No extrauterine abnormalities observed. There has been appropriate interval growth. Biometry Chart: BPD 7.6 cm = 30 weeks 3 days HC 29.7 cm = 32 weeks 6 days AC 28.1 cm = 32 weeks 1 day FL 5.9 cm = 30 weeks 5 days HL 5.3 cm = 30 weeks 6 days HC/AC ratio normal 1.06. Cephalic index normal 0.69. Estimated weight 1843 grams, 4 pounds 1 ounce, 20th percentile for 33 weeks 1 day. MALINDA normal 9.6 cm (8.3-24.5 cm). Biophysical profile score 8 out of a possible 8. IMPRESSION: Viable single intrauterine gestation at 31 weeks 3 days by today's composite sonographic criteria. Expected gestational age estimate based on prior sonography is 33 weeks 1 day. RUTH by prior sonography June 30, 2019. There has been appropriate interval growth.
== END ==
LOC: M WHC 11:43
PROVIDERS: ATTEND Advanced Practice Midwife
DX: O36.5930 Maternal care for other known or suspected poor fetal growth, third trimester, not applicable or unspecified (principal); Z3A.31 31 weeks gestation of pregnancy

== ENCOUNTER → 2019-05-20 | Outpatient (CLI) | payer OTHER ==
--- NOTE | 2019-05-20 11:47 | REP ---
Limited obstetric sonography: History: Intrauterine growth restriction. For biophysical profile. Third prior trimester study. Findings: Scanning demonstrates a single living intrauterine gestation in a cephalic lie. motion is observed and heart rate is recorded at 144 beats per minute. A anterior placenta is seen, grade 3, without evidence of previa or abruption. Amniotic fluid is subjectively normal. MALINDA is normal at 10.6 cm. Closed cervical length measured transabdominally is 3.4 cm. Biophysical profile score is eight out of a possible eight. SD ratio in the umbilical cord artery by Doppler is normal at 2.78. Electronically Signed by Terry Dotson MD 05/20/2019 11:38 A
== END ==
LOC: M WHC 10:24
PROVIDERS: ATTEND Advanced Practice Midwife
DX: O36.5930 Maternal care for other known or suspected poor fetal growth, third trimester, not applicable or unspecified (principal)

== ENCOUNTER → 2019-05-24 | Outpatient (REF) | payer OTHER | LOC: M SFHCWAGY 11:28 | PROVIDERS: ATTEND Advanced Practice Midwife | DX: O36.5930 Maternal care for other known or suspected poor fetal growth, third trimester, not applicable or unspecified (principal); Z3A.00 Weeks of gestation of pregnancy not specified ==

== ENCOUNTER → 2019-06-02 | Outpatient (CLI) | payer OTHER ==
--- NOTE | 2019-06-02 18:29 | REP ---
Clinical: well-being Comparison: 05/20/2019 . Findings: Examination demonstrates a single live intrauterine in cephalic presentation. motion is identified by technologist. Placenta is noted anterior and grade I I I without evidence for placenta previa or abruption. Amniotic fluid volume is normal. Cervix measures 3.4 cm in length and appears closed. No evidence for nuchal cord. Gestational age by LMP 36 weeks 0 days with RUTH 06/30/2019 . FHR equals 158 beats per minute. Biophysical profile score: 8/8 Amniotic fluid index: 10.7 cm Umbilical cord SD ratio ( insertion): 2.12 Umbilical cord SD ratio (Mid cord): 2.42 (2.00 - 3.00) Umbilical cord SD ratio (placental insertion): 2.52 Impression: Single live advanced gestation in cephalic presentation. Biophysical profile score and amniotic fluid volume are normal.
== END ==
LOC: M WHC 07:35
PROVIDERS: ATTEND Advanced Practice Midwife
DX: O36.5930 Maternal care for other known or suspected poor fetal growth, third trimester, not applicable or unspecified (principal)

== ENCOUNTER → 2019-06-14 | Outpatient (CLI) | payer OTHER ==
[~2019-06-14] MED LIST changes: +METF-839 PO; +TUMS750C22 PO
--- NOTE | 2019-06-15 05:54 | REP ---
Clinical: Anatomical evaluation. Comparison: well-being . Findings: Examination demonstrates a single live intrauterine in 06/02/2019 presentation. motion is identified by technologist. Placenta is noted cephalic and grade anterior without evidence for placenta previa or abruption. Amniotic fluid volume is normal. Cervix measures I I I in length and appears closed. No evidence for nuchal cord. Gestational age by LMP 37 weeks 5 days with RUTH 06/30/2019 . Gestational age by current measurements 33 weeks 1 day FHR equals 127 beats per minute. HC/AC ratio 1.04 Estimated weight 2227 grams (less than 3rd percentile based on age by LMP and first ultrasound). Biophysical profile score: 8/8 Amniotic fluid index: 11.3 cm (7.4 - 24.0) Impression: 1. Less than expected interval growth noted. 2. Biophysical profile score, amniotic fluid volume, and HC/AC ratios normal.
== END ==
LOC: M WHC 11:23
PROVIDERS: ATTEND Advanced Practice Midwife
DX: O36.5930 Maternal care for other known or suspected poor fetal growth, third trimester, not applicable or unspecified (principal); Z3A.37 37 weeks gestation of pregnancy

== ENCOUNTER 2019-06-16 16:34 | Inpatient (IN) | payer OTHER ==
[~2019-06-16] VITALS: Ht 175.3 cm; Wt 118.6 kg
[~2019-06-16 16:34] MED LIST changes: -METF-839 PO; -TUMS750C22 PO
[2019-06-16] MEDS ORDERED: TUMS750C22 PO (17:04)
[2019-06-16 17:06] VITALS: BP 109/56
[2019-06-16] MEDS ORDERED: METF-839 PO (17:29)
[2019-06-16 17:56] VITALS: BP 110/61
[2019-06-16] MEDS: miSOPROStol 50 MCG 1/2 TAB (S0191) PO SCH ×2 (17:56→22:14)
--- NOTE | 2019-06-16 18:05 | HPE ---
DATE OF ADMISSION: 06/16/2019 Gina is a 23-year-old, 3, para 1-0-1-1 at 38 weeks gestation, estimated date of confinement (EDC) 06/30/2019 based on last menstrual period and confirmed by first trimester ultrasound. She presents to labor and delivery today for induction of labor due to intrauterine growth restriction per consult with Dr. Andrés Garay. She denies vaginal bleeding and leakage of fluid. She denies regular painful contractions and she reports that the fetus has been active. [facility] was [facility] in the first trimester. Her course complicated by obesity, A2 gestational diabetes, history of depression, and intrauterine growth restriction. She had undergone antepartum testing that was reassuring. At one point, the growth had resumed normal growth, reaching 20th percentile. Most recent ultrasound on 06/14/2019 with estimated weight (EFW) of 2227 grams, less than the third percentile. Amniotic fluid index (MALINDA) normal at 11.3. OBSTETRICAL HISTORY: February 2012, elective termination of . July 2016, 40 weeks, two days, 8-pound, 9-ounce male, spontaneous vaginal delivery, following induction of labor. Gestational diabetes A1. OBSTETRIC LABORATORY DATA: A+, antibody screen negative, RPR negative, hepatitis B surface antigen negative. Hepatitis C antibody nonreactive. HIV negative. Gonorrhea and Chlamydia negative. Rubella immune. Urine culture: No growth. GBS negative. She failed her early one-hour glucose and desired to be treated as a diabetic and did require medication. PAST MEDICAL HISTORY: Rectal bleeding, anal fissure in the past. SURGERIES: She had to have her Nexplanon removed surgically. FAMILY HISTORY: Heart disease and hypertension. SOCIAL HISTORY: The patient is . Her is at the bedside and supportive. She is a nonsmoker. She denies alcohol and drug use. There is no history of sexually transmitted infections and she denies history of abuse, physical, sexual and emotional. ALLERGIES: ALCOHOLIC BEVERAGES which causes rash and hives. CURRENT MEDICATIONS: - vitamin - sertraline 25 mg daily - metformin 500 mg twice a day OBJECTIVE: Temperature 97.7, pulse 77, respiration 18, blood pressure is 109/56. She is alert and oriented times three. She is in no apparent distress. She is talkative and smiling. heart rate is 140 with moderate variability, positive accelerations, negative decelerations. There is no pattern of contractions. Her abdomen is gravid, cephalic presentation. Estimated weight 2500 grams. Sterile vaginal examination: Fingertip, 50% effaced, -3 station, posterior, very soft. No show with the examination. ASSESSMENT: 1. Intrauterine at 38 weeks. 2. heart rate category 1. 3. Intrauterine growth restriction. 4. Term . PLAN: Admit to labor and delivery. Routine laboratories. Out of bed ad jenifer. Regular diet at this time. The patient will desire an epidural when she is in active labor. The plan to start misoprostol 50 mcg by mouth every four hours for cervical ripening. Likely, we will start IV Pitocin for labor induction and consider assisted rupture of membranes to augment her labor once she is comfortable following epidural placement. I did review the risks, benefits and alternatives with the patient. She and her 's questions have been answered. I did verbally consent her for emergency surgery and blood products if necessary. I do anticipate cervical ripening, labor and a spontaneous vaginal delivery.
[2019-06-16 18:06] LABS: HEMOGLOBIN 13.3 g/dl (12.0-15.5); MEAN CORPUSCULAR HEMOGLOBIN 29.6 pg (27.0-33.0); MEAN CORPUSCULAR HGB CONC 34.1 g/dl (32.0-36.5); MEAN CORPUSCULAR VOLUME 86.9 fl (80.0-96.0); PLATELET COUNT, AUTOMATED 157 10^3/uL (150-450); RED BLOOD COUNT 4.49 10^6/uL (4.00-5.40); WHITE BLOOD COUNT 11.4 10^3/uL (4.0-10.0)
[2019-06-16 18:58] VITALS: BP 122/67
[2019-06-16 20:06] VITALS: BP 129/79
[2019-06-16 21:46] VITALS: BP 118/73
[2019-06-17] VITALS (17 sets, daily range): BP systolic 93–136; BP diastolic 52–85
[2019-06-17] MEDS: miSOPROStol 50 MCG 1/2 TAB (S0191) PO SCH ×2 (02:00→07:24)
[2019-06-17] MEDS ORDERED: ONDANSETRON 4MG/2ML VIAL As Ordered ONE (06:56)
[2019-06-17] MEDS: ONDANSETRON 4MG/2ML VIAL IV PRN ×2 (07:00→18:26)
[2019-06-17] MEDS ORDERED: LR 1,000 ML IV SCH (13:23)
[2019-06-17] MEDS ORDERED: OXYTOCIN DRIP 30 UNITS in IV 1 EA IV SCH (13:30)
--- NOTE | 2019-06-17 13:33 | IPNPDOC ---
Text Note Date of Service The patient was seen on 06/17/19. NOTE Subjective: Patient seen at bedside, feeling some cramps but CTX are not painful. Objective: Vitals: see below Abdomen: gravid SVE: FT/50/-3 FHR: 140 bpm, accels, no decels, Cat 1 tracing TOCO: CTX q3-5 min Assessment: Gina is a 23-year-old, 3, para 1-0-1-1 at 38.1 weeks gestation, estimated date of confinement (EDC) 06/30/2019 based on last menstrual period and confirmed by first trimester ultrasound. She presented to labor and delivery 06/16/19 for induction of labor due to intrauterine growth restriction (<3rd percentile). Plan: -s/p 4 doses cytotec -inserted Cook's catheter with 40 cc NS at 1311 hours -start pitocin for augmentation -anticipate vaginal delivery -c/s as appropriate VS,Fishbone, I+O VS, Fishbone, I+O Laboratory Tests 06/16/19 17:47 Vital Signs Date Time Temp Pulse Resp B/P (MAP) Pulse Ox O2 Delivery O2 Flow Rate FiO2 06/17/19 08:49 98.2 70 16 120/59 (79) GME ATTESTATION GME ATTESTATION My faculty preceptor for this patient encounter was physically present during the encounter and was fully available. All aspects of the patient interview, examination, medical decision making process, and medical care plan development were reviewed and approved by the faculty preceptor. The faculty preceptor is aware and concurs with the plan as stated in the body of this note and will attest to such by his/her cosignature. LUZ MARIA CUELLAR D.O. June 17, 2019 13:33
--- NOTE | 2019-06-17 21:06 | IPNPDOC ---
Text Note Date of Service The patient was seen on 06/17/19. NOTE Subjective: Patient seen at bedside, still feeling mild cramping. Objective: Vitals: see below Abdomen: gravid SVE: 5/70/-2 FHR: 130 bpm, accels, no decels, Cat 1 tracing TOCO: CTX q3-5 min AROM moderate meconium stained fluid at 2100 hours Pitocin at 20 Assessment: Gina is a 23-year-old, 3, para 1-0-1-1 at 38.1 weeks gestation, estimated date of confinement (EDC) 06/30/2019 based on last menstrual period and confirmed by first trimester ultrasound. She presented to labor and delivery 06/16/19 for induction of labor due to intrauterine growth restriction (<3rd percentile). Plan: -s/p 4 doses cytotec -s/p Cook's catheter -continue pitocin for augmentation - status reassuring -anticipate vaginal delivery -c/s as appropriate VS,Fishbone, I+O VS, Fishbone, I+O Vital Signs Date Time Temp Pulse Resp B/P (MAP) Pulse Ox O2 Delivery O2 Flow Rate FiO2 06/17/19 18:52 75 16 95/52 (66) 06/17/19 18:21 97.8 GME ATTESTATION GME ATTESTATION My faculty preceptor for this patient encounter was physically present during the encounter and was fully available. All aspects of the patient interview, examination, medical decision making process, and medical care plan development were reviewed and approved by the faculty preceptor. The faculty preceptor is aware and concurs with the plan as stated in the body of this note and will attest to such by his/her cosignature. LUZ MARIA CUELLAR D.O. June 17, 2019 21:06
[2019-06-17] MEDS ORDERED: EPIDURAL/PCA KEYS XX PRN (22:45)
[2019-06-17] MEDS ORDERED: FENTANYL/ROPIVACAINE/NACL BAG 100 ML EPIDURAL SCH (22:45)
[2019-06-17] MEDS ORDERED: EPIDURAL COMMENT XX SCH (22:45)
[2019-06-17] MEDS ORDERED: NALOXONE INJ 0.4MG/1ML VIAL (J2310 PER 1MG) IV PRN (22:45)
[2019-06-17] MEDS ORDERED: ePHEDrine SULFATE 25 MG/5 ML(5MG/ML) SYRINGE IV PRN (22:45)
[2019-06-17] MEDS ORDERED: ONDANSETRON 4MG/2ML VIAL IV PRN (22:45)
[2019-06-17] MEDS ORDERED: REFRIGERATOR IV KEYS XX PRN (22:45)
[2019-06-17] MEDS ORDERED: diphenhydrAMINE 50MG/ML VIAL (J1200) IV PRN (22:45)
[2019-06-17] MEDS ORDERED: LACTATED RINGER'S 1000 ML IV PRN (22:45)
[2019-06-18] MEDS ORDERED: DOCUSATE SODIUM 100 MG CAP PO PRN (00:15)
[2019-06-18] MEDS ORDERED: OXYTOCIN DRIP 30 UNITS in IV 1 EA IV ONE (00:15)
[2019-06-18] MEDS ORDERED: ACETAMINOPHEN 500 MG TAB PO PRN (00:15)
[2019-06-18] MEDS ORDERED: DIBUCAINE 1% OINTMENT 30GM TOP PRN (00:15)
[2019-06-18] MEDS ORDERED: ONDANSETRON 4MG/2ML VIAL IV PRN (00:15)
[2019-06-18] MEDS ORDERED: MEASLES,MUMPS,RUBELLA VACCINE INJ (MMR-II) (90707) SC SCH (00:15)
[2019-06-18] MEDS ORDERED: METHYLERGONOVINE MALEATE 0.2 MG TAB PO PRN (00:15)
[2019-06-18] MEDS ORDERED: RHOGAM 300 MCG (1500 IU) INJ (J2790) IM SCH (00:15)
[2019-06-18] MEDS ORDERED: ACETAMINOPHEN TAB 650MG DOSE (2X325MG) PO PRN (00:15)
[2019-06-18] MEDS ORDERED: IBUPROFEN 600 MG TAB PO PRN (00:15)
[2019-06-18 02:30] VITALS: BP 131/63
[2019-06-18] MEDS: IBUPROFEN 800 MG TAB PO PRN ×2 (03:03→21:02)
[2019-06-18 05:58] VITALS: BP_SYST 133; BP_SYST 134; BP_DIAS 79; BP_DIAS 81
[2019-06-18] MEDS: PRENATAL VITAMINS CHEWABLE TABLET PO SCH (09:00)
[2019-06-18 18:00] VITALS: BP 131/87
[2019-06-19] MEDS: IBUPROFEN 800 MG TAB PO PRN (05:57)
[2019-06-19] MEDS: PRENATAL VITAMINS CHEWABLE TABLET PO SCH (08:16)
--- NOTE | 2019-06-19 20:40 | DN ---
DATE: 06/16/2019 PREDELIVERY DIAGNOSIS: Intrauterine growth restriction, 38 weeks, labor induction. POSTDELIVERY DIAGNOSIS: Delivered. PROCEDURE: Spontaneous vaginal delivery. GREENHOUSE INSTRUCTOR: Dr. Andrés Garay SERVICES EXECUTIVE: Marium Barrientos D.O. ANESTHESIA: Epidural ESTIMATED BLOOD LOSS: 300 mL. FINDINGS: A 6-pound 6-ounce female , scores 8 and 9. DELIVERY SUMMARY: After a short second stage of 5 minutes, the patient spontaneously delivered a 6-pound 6-ounce female , scores 8 and 9, under epidural anesthesia. Nuchal cord times one was reduced. The shoulders delivered with ease. The infant was handed to the mother. The cord was doubly clamped and cut. The placenta delivered spontaneously and appeared to be intact. The patient received intravenous (IV) Pitocin immediately after delivery of the placenta. A small first-degree laceration was repaired with interrupted suture of 3-0 Rapide Vicryl. Sponge and needle counts were correct.
== END 2019-06-19 18:13 | disposition home or self-care (01) | DRG 560 ==
LOC: M LDI 16:34 → M OBS 06-18 02:05
PROVIDERS: ADMIT Advanced Practice Midwife; ATTEND Specialist
PROC: 10E0XZZ Delivery of Products of Conception, External Approach (ICD-10-PCS; principal; 2019-06-16)
PROC: 3E0P7GC Introduction of Other Therapeutic Substance into Female Reproductive, Via Natural or Artificial Opening (ICD-10-PCS; 2019-06-16)
PROC: 0HQ9XZZ Repair Perineum Skin, External Approach (ICD-10-PCS; 2019-06-16)
DX: O36.5930 Maternal care for other known or suspected poor fetal growth, third trimester, not applicable or unspecified (principal); E66.9 Obesity, unspecified; O24.425 Gestational diabetes mellitus in childbirth, controlled by oral hypoglycemic drugs; Z3A.38 38 weeks gestation of pregnancy; O99.214 Obesity complicating childbirth; O69.81X0 Labor and delivery complicated by cord around neck, without compression, not applicable or unspecified; O70.0 First degree perineal laceration during delivery; Z37.0 Single live birth

== ENCOUNTER → 2019-08-16 | Outpatient (REF) | payer OTHER ==
[~2019-08-16] MED LIST changes: +METF-839 PO; +TUMS750C22 PO
[2019-08-16 17:53] LABS: BASO # 0.1 10^3/uL (0.0-0.2); BASO % 0.5 % (0.0-1.0); EOS # 0.2 10^3/uL (0.0-0.5); HEMATOCRIT 38.9 % (36.0-47.0); HEMOGLOBIN 12.3 g/dl (12.0-15.5); LYMPH # 2.4 10^3/uL (1.5-5.0); LYMPH % 24.2 % (24.0-44.0); MEAN CORPUSCULAR HEMOGLOBIN 28.5 pg (27.0-33.0); MEAN CORPUSCULAR HGB CONC 31.6 g/dl (32.0-36.5); MEAN CORPUSCULAR VOLUME 90.3 fl (80.0-96.0); MONO # 0.8 10^3/uL (0.0-0.8); MONO % 7.9 % (0.0-5.0); NEUTROPHILS # 6.5 10^3/uL (1.5-8.5); NEUTROPHILS % 65.1 % (36.0-66.0); PLATELET COUNT, AUTOMATED 200 10^3/uL (150-450); RED BLOOD COUNT 4.31 10^6/uL (4.00-5.40); WHITE BLOOD COUNT 9.9 10^3/uL (4.0-10.0)
[2019-08-16 18:04] LABS: ALBUMIN 3.6 GM/DL (3.2-5.2); ALT/SGPT 31 U/L (12-78); BILIRUBIN,TOTAL 0.3 MG/DL (0.2-1.0); BLOOD UREA NITROGEN 12 MG/DL (7-18); CARBON DIOXIDE LEVEL 30 MEQ/L (21-32); CHLORIDE LEVEL 106 MEQ/L (98-107); CREATININE FOR GFR 0.78 MG/DL (0.55-1.30); GLOMERULAR FILTRATION RATE > 60.0 (>60); GLUCOSE, FASTING 63 MG/DL (70-100); POTASSIUM SERUM 4.1 MEQ/L (3.5-5.1); SODIUM LEVEL 138 MEQ/L (136-145); TOTAL PROTEIN 6.9 GM/DL (6.4-8.2)
[2019-08-19 14:08] LABS: Lyme Disease IgG Ab 18 kDa Ban Absent (.); Lyme Disease IgG Ab 23 kDa Ban Absent (.); Lyme Disease IgG Ab 28 kDa Ban Absent (.); Lyme Disease IgG Ab 30 kDa Ban Absent (.); Lyme Disease IgG Ab 39 kDa Ban Present (.); Lyme Disease IgG Ab 41 kDa Ban Present (.); Lyme Disease IgG Ab 45 kDa Ban Absent (.); Lyme Disease IgG Ab 58 kDa Ban Present (.); Lyme Disease IgG Ab 66 kDa Ban Absent (.); Lyme Disease IgG Ab 93 kDa Ban Present (.); Lyme Disease IgG West Blot Int Negative (.); Lyme Disease IgG/IgM Antibodie 2.35 ISR (0.00-0.90); Lyme Disease IgM Ab 23 kDa Ban Present (.); Lyme Disease IgM Ab 39 kDa Ban Present (.); Lyme Disease IgM Ab 41 kDa Ban Present (.); Lyme Disease IgM Ab Quantitati 6.91 index (0.00-0.79); Lyme Disease IgM West Blot Int Positive (.)
== END ==
LOC: M LABDRWAD 16:20
PROVIDERS: ATTEND Physician Assistant
DX: R21 Rash and other nonspecific skin eruption (principal)

== ENCOUNTER → 2020-06-23 | Outpatient (REF) | payer OTHER | LOC: M SFHCWAGY 10:27 | PROVIDERS: ATTEND Specialist | DX: Z01.419 Encounter for gynecological examination (general) (routine) without abnormal findings (principal); R87.610 Atypical squamous cells of undetermined significance on cytologic smear of cervix (ASC-US) ==

== ENCOUNTER → 2023-06-19 | Outpatient (REF) | payer OTHER | LOC: M SFHCWAGY 12:47 | PROVIDERS: ATTEND Nurse Practitioner Family | DX: Z12.4 Encounter for screening for malignant neoplasm of cervix (principal); N93.0 Postcoital and contact bleeding ==

== ENCOUNTER 2024-11-07 11:27 | Emergency (ER) | payer MEDICAID, OTHER, SELFPAY ==
[~2024-11-07] VITALS: Ht 175.3 cm; Wt 100.8 kg
[~2024-11-07 11:27] MED LIST changes: +ONDA-282 PO; -ONDA4TAB6 PO
[2024-11-07 12:19] LABS: BASO # 0.0 10^3/uL (0.0-0.2); BASO % 0.3 % (0.0-1.0); EOS # 0.0 10^3/uL (0.0-0.5); EOS % 0.2 % (0.0-3.0); LYMPH # 1.8 10^3/uL (1.5-5.0); LYMPH % 17.4 % (24.0-44.0); MONO # 0.4 10^3/uL (0.0-0.8); MONO % 3.4 % (2.0-8.0); NEUTROPHILS # 8.1 10^3/uL (1.5-8.5); NEUTROPHILS % 78.3 % (36.0-66.0); PLATELET COUNT, AUTOMATED 217 10^3/uL (150-450)
[2024-11-07 12:45] LABS: ALT/SGPT 31 U/L (7.0-40); AST/SGOT 23 U/L (<34); CALCIUM LEVEL 9.4 MG/DL (8.5-10.1); CARBON DIOXIDE LEVEL 27 MMOL/L (20-31); CHLORIDE LEVEL 107 MMOL/L (98-107); CREATININE FOR GFR 0.67 MG/DL (0.55-1.30); GLOMERULAR FILTRATION RATE > 90.0 (>60); POTASSIUM SERUM 4.3 MMOL/L (3.5-5.1); SODIUM LEVEL 143 MMOL/L (136-145)
[2024-11-07 15:17] LABS: HCG, SERUM QUALITATIVE NEGATIVE (NEGATIVE)
[2024-11-07] MEDS: NS (Normal Saline) 0.9% 1,000 ML IV ONE (15:21)
[2024-11-07] MEDS: ONDANSETRON 4MG/2ML VIAL IV ONE (15:21)
[2024-11-07] MEDS: KETOROLAC 30 MG/ML 1 ML VIAL IV ONE (15:21)
[2024-11-07] MEDS ORDERED: ISOVUE-370 76% 100 ML VIAL As Ordered ONE (15:51)
[2024-11-07 17:24] VITALS: BP 128/75; TEMP 98.1; O2SAT 98
== END 2024-11-07 17:25 | disposition home or self-care (01) ==
LOC: M ED 11:27
DX: U07.1 COVID-19 (principal); Z79.899 Other long term (current) drug therapy; Z88.0 Allergy status to penicillin
CPT/HCPCS: 74177; 80053; 84703; 85025; 87486; 87581; 87633; 87798; 96361; 96374; 96375; 99284; J1885; J2405; Q9967